=== PATIENT | male | born 1945 | race Caucasian/White ===

== ENCOUNTER → 2021-02-05 09:40 | Outpatient (BNVA) | payer MEDICAID, SELFPAY | PROVIDERS: PCP Physician Assistant; Referring Provider Family Medicine; Visit Provider Urology | DX: N28.1 Cyst of kidney, acquired (principal) | CPT/HCPCS: 81003 ==

== ENCOUNTER 2021-02-19 15:07 | Outpatient (CLI) | payer MEDICAID, SELFPAY ==
--- NOTE | 2021-02-19 15:00 | CTR_ITS ---
PROCEDURE INFORMATION: Exam: CT Abdomen And Pelvis Without Contrast Exam date and time: 02/19/2021 3:00 PM Age: 75 years old Clinical indication: Abdominal pain; Prior surgery; Additional info: Renal cyst, CT renal mass protocol @ [facility] on 02/19/21 @ 3:00. Appt to TECHNIQUE: Imaging protocol: Computed tomography of the abdomen and pelvis without contrast. Total images: 224 Radiation optimization: All CT scans at this facility use at least one of these dose optimization techniques: automated exposure control; mA and/or kV adjustment per patient size (includes targeted exams where dose is matched to clinical indication); or iterative reconstruction. COMPARISON: US renal BI* [id number] 12/12/2020 4:06 PM RADIATION DOSE METRICS: Total DLP (mGy-cm): 1315.49 FINDINGS: Pleural spaces: Scant bilateral pleural effusions. Heart: Minimal pericardial effusion. Liver: No visible hepatic mass or cystic structure. Gallbladder and bile ducts: Cholelithiasis with a solitary tiny gallstone measuring 5 mm. No gallbladder wall thickening or pericholecystic fluid. No visible intra or extrahepatic biliary ectasia. Pancreas: Pancreas is unremarkable. No visible pancreatic ductal ectasia. Spleen: Spleen unremarkable. Adrenal glands: Small left adrenal adenoma measuring only 13 mm x 10 mm. No follow-up recommended. Right adrenal gland unremarkable. Kidneys and ureters: No visible hydronephrosis or perinephric fluid. No visible nephrolithiasis or ureterolithiasis. Mild renal arteriosclerosis. Numerous bilateral renal cortical cysts consistent with autosomal dominant polycystic kidney disease. Dominant cysts inferior pole right kidney measures 5.6 cm. No definite solid renal mass identified this evaluation although limited due the lack of intravenous contrast. Stomach and bowel: Diverticulosis coli without visible evidence for acute diverticulitis. Nonobstructive bowel pattern. No visible adynamic or reactive ileus. Appendix: The appendix is not visualized and may be surgically absent. Intraperitoneal space: No visible pneumoperitoneum or intraperitoneal ascites. Vasculature: The abdominal aorta is nonaneurysmal. Advanced arterial sclerotic disease. Lymph nodes: No current visible evidence of active mesenteric or retroperitoneal lymphadenopathy. Urinary bladder: Urinary bladder unremarkable. Reproductive: Prostate hypertrophy. Bones/joints: No visible active or acute osseous pathology. 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 Advanced degenerative disc disease L5/S1. Less significant degenerative disc disease L1/L2 and L2/L3. Facet arthrosis. Scoliosis. Sclerotic focus left sacral ala suspected bone island. Soft tissues: Unremarkable. Other findings: Obesity. CT/CT abdomen pelvis wo con [id number] IMPRESSION: 1. Currently no visible evidence for acute abdominal or pelvic pathologic process. 2. Scant bilateral pleural effusions. 3. Minimal pericardial effusion. 4. Cholelithiasis with a solitary tiny gallstone measuring 5 mm. 5. Small left adrenal adenoma. No follow-up recommended. 6. Diverticulosis coli without visible evidence for acute diverticulitis. 7. Numerous bilateral renal cortical cysts consistent with autosomal dominant polycystic kidney disease. 8. Other nonurgent, nonemergent, chronic, and age related findings as detailed in text above. COMMENTS: 1. Consistent with the [employer]'s Incidental Findings Committee white paper (J Am Zachary Radiol 2017): Any incidental adrenal lesion less than or equal to 1 cm is likely benign. No follow-up imaging is recommended for these lesions per consensus recommendations based on imaging criteria. Further lab evaluation could be pursued if warranted based on clinical findings. 2. Consistent with the [employer]'s Incidental Findings Committee white paper (J Am Zachary Radiol 2018): Any incidental renal lesion less than 1 cm or classified as too small to characterize, or any incidental cystic renal lesion characterized as simple-appearing, is likely benign. No follow-up imaging is recommended for these lesions per consensus recommendations based on imaging criteria. Radiation Dose CTDIVOL = (mGy): DLP = 1315.49 (mGy-cm)
[2021-02-19 15:47] LABS: Blood Urea Nitrogen 19 mg/dL (8-23)
== END 2021-02-19 15:08 | disposition home or self-care (01) ==
LOC: RAD 15:08
PROVIDERS: PCP Physician Assistant; Visit Provider Urology
DX: N28.1 Cyst of kidney, acquired (principal); J90 Pleural effusion, not elsewhere classified; I31.3 Pericardial effusion (noninflammatory); K80.20 Calculus of gallbladder without cholecystitis without obstruction; K80.80 Other cholelithiasis without obstruction; D35.02 Benign neoplasm of left adrenal gland; K57.90 Diverticulosis of intestine, part unspecified, without perforation or abscess without bleeding
CPT/HCPCS: 74176; 82565; 84520

== ENCOUNTER → 2021-02-26 11:03 | Outpatient (BNVA) | payer MEDICAID, SELFPAY | PROVIDERS: PCP Physician Assistant; Visit Provider Orthopaedic Surgery | DX: M25.562 Pain in left knee (principal) | CPT/HCPCS: 73560; 73565 ==

== ENCOUNTER 2021-08-19 13:56 | Outpatient (CLI) | payer MEDICAID, SELFPAY ==
--- NOTE | 2021-08-19 14:30 | US_ITS ---
WS: [id number] RENAL ULTRASOUND HISTORY: COMPLEX RENAL CYST COMPARISON: 12/12/2020 TECHNIQUE: 2-D and color Doppler imaging of the kidney submitted. Right kidney: 10.0 cm x 6.2 cm x 5.4 cm. Normal size kidney. Kidney is very echogenic throughout. Very mild thinning of the renal cortex. Ther e are multiple cysts throughout the RIGHT kidney. No solid mass. The largest cyst in the inferior christoph e measures 5.2 x 5.1 x 5.0 cm. No solid mass. No hydronephrosis. Left kidney: 9.8 cm x 5.0 cm x 4.9 cm. Normal size kidney with increased echogenicity. Multiple acquired renal cysts. Some of these are comp racheal and more solid in appearance. More solid-appearing mass in the mid kidney measures 3.7 x 2.7 x 3. 2 cm. This could be a complex cyst. This mass was also present on the study from 12/12/2020 without inc rease in size. Aorta: Normal. Urinary Bladder: Normal distention. US/US renal BI* [id number] IMPRESSION: 1. Complex mass without increased vascularity mid LEFT kidney measures 3.7 x 2 .7 x 3.2 cm and is unchanged since 12/12/2020. Recommend continued 6-12 month ult rasound follow-up to document long-term stability. Favor this is probably a com plex cyst. 2. Numerous bilateral renal cysts. 3. No hydronephrosis. 4. Moderate chronic medical renal disease.
== END 2021-08-19 13:57 | disposition home or self-care (01) ==
LOC: RAD 13:59
PROVIDERS: PCP Physician Assistant; Visit Provider Urology
DX: N28.1 Cyst of kidney, acquired (principal); N28.9 Disorder of kidney and ureter, unspecified; N18.9 Chronic kidney disease, unspecified; N28.89 Other specified disorders of kidney and ureter
CPT/HCPCS: 76770; 81003; 99213